=== PATIENT | female | born 1955 | race African-American/Black ===

== ENCOUNTER 2018-03-04 12:45 | Emergency (ER) | payer OTHER ==
[~2018-03-04] VITALS: Ht 157.5 cm; Wt 62.3 kg
[2018-03-04] MEDS ORDERED: ASPI81 PO (13:53)
[2018-03-04] MEDS ORDERED: LISI-660 PO (13:53)
[2018-03-04 15:30] VITALS: BP 134/70
[2018-03-04] MEDS ORDERED: HydrOXYzine HCL 25 MG TABLET PO ONE (16:15)
[2018-03-04] MEDS ORDERED: PredniSONE 20 MG TABLET PO ONE (16:15)
== END 2018-03-04 16:44 | disposition home or self-care (01) ==
LOC: EMS 12:47
DX: T78.40XA Allergy, unspecified, initial encounter (principal); F17.210 Nicotine dependence, cigarettes, uncomplicated; I10 Essential (primary) hypertension; Z79.82 Long term (current) use of aspirin; Z88.0 Allergy status to penicillin; X58.XXXA Exposure to other specified factors, initial encounter
CPT/HCPCS: 99283; 99406; J7512